=== PATIENT | female | born 1965 ===

== ENCOUNTER 2021-09-24 09:20 | Outpatient (CLI) | payer BC ==
[2021-09-24 13:22] LABS: Chol/HDL Ratio 4.17 %
== END 2021-09-24 09:21 | disposition home or self-care (01) ==
LOC: LABHHL 09:20
PROVIDERS: ATTEND Internal Medicine
DX: E78.5 Hyperlipidemia, unspecified (principal)
CPT/HCPCS: 36415; 80061